=== PATIENT | female | born 1945 | race Two or more races ===

== ENCOUNTER → 2016-09-12 | Outpatient (CLI) | payer MEDICARE, MEDICAID ==
[~2016-09-12] MED LIST: ADVAIR 250-501 EACH INH; ASPIRIN EC81 MG PO; COREG6.25 MG PO; MIRALAX17 GM PO; NITROSTAT0.4 MG SL; OMEPRAZOLE20 M1 PO; PAIN RELIEF500 M1 PO; PROAIR HFA8.5 GM INH; VITAMIN D2000 UNI1 PO
== END | disposition disaster alternative care site (69) ==
LOC: GOPD 09-10 16:30 → GRAD 13:50 → GOPD 14:30
PROC: 3E0R33Z Introduction of Anti-inflammatory into Spinal Canal, Percutaneous Approach (ICD-10-PCS; principal; 2016-09-12)
PROC: 3E0R3BZ Introduction of Anesthetic Agent into Spinal Canal, Percutaneous Approach (ICD-10-PCS; 2016-09-12)
DX: M54.5 Low back pain (principal); M51.16 Intervertebral disc disorders with radiculopathy, lumbar region
CPT/HCPCS: J1040